=== PATIENT | female | born 1965 | race Caucasian/White ===

== ENCOUNTER 2017-01-21 15:08 | Outpatient (CLI) | payer BC ==
--- OUTSIDE RECORDS SUMMARY | 2017-01-21 15:18 | XMS | Clinical Summary ---
:1965 Author Organization [facility] Address [address] [place] [address] Phone Care Team Providers Name Role Phone , Primary Care Provider Unavailable Allergies Active Allergy Reactions Severity Noted Date Comments Penicillins 11/22/2015 Hurjguj-Lto-Fxn Reductase Inhibitors 11/22/2015 Current Medications Not on file Active Problems Not on file Family History Medical History Relation Name Comments Pancreatic cancer Maternal Grandfather Throat cancer Maternal Grandfather Throat cancer Other aunts Cancer Other uncle Relation Name Status Comments Maternal Grandfather Other aunts Other uncle Social History Tobacco Use Types Packs/Day Years Used Date Never Assessed Sex Assigned at Date Recorded Not on file Last Filed Vital Signs Not on file Plan of Treatment Health Maintenance Due Date Last Done Comments PAP SMEAR 1984 COLONOSCOPY 2013 MAMMOGRAM 2013 INFLUENZA VACCINE 11/18/2016 Results Not on filefrom Last 3 Months
--- NOTE | 2017-01-21 16:28 | RAD ---
FOUR VIEWS LUMBOSACRAL SPINE: Indication: Radiculopathy. FINDINGS: There is laminectomy changes at L5 and S1. There is multilevel disc degenerative disease. No definit e abnormal translational motion is evident. No acute fracture is demonstrated. IMPRESSION: 1. Post operative lumbar spine. 2. No abnormal translational motion. POS: [facility]
--- NOTE | 2017-01-21 17:46 | MRI ---
LUMBAR SPINE WITH AND WITHOUT CONTRAST 01/21/17 COMPARISON: 02/21/15 MRI. CLINICAL INDICATION: Lumbar radiculopathy. FINDINGS: Vertebral body height and alignment are preserved. Conus medullaris demonstrates normal morphology t erminating at the L1 level. Degenerative T1 signal reduction of the L3-4 disc space is stable. Redemonstration of right renal signal abnormality. There is evidence of posterior decompression within the superior L4 level through the L5-S1 level. T here is no high grade central canal stenosis of the postoperative L4-5 and L5-S1 levels. No high gra de foraminal stenosis of L5-S1 level, bilaterally. There is mild bilateral foraminal stenosis at L4- 5 level. L3-4: There is no high grade central canal stenosis, which is an improvement from prior exam. There is mild to moderate bilateral neural foraminal stenosis grossly stable. L2-3: No significant central canal stenosis. There is mild AP diameter of the bilateral neural lamin earlene. L1-2: No significant central canal or foraminal stenosis. Postcontrast imaging reveals no mass producing enhancement of the vertebral canal or pathologic enha ncement of conus medullaris or nerve roots of cauda equina. There is circumferential enhancement about the postoperative thecal sac of the L4 through L5-S1 leve ls indicating epidural fibrosis. 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 There has been interval improveme nt with regard to prior central canal stenosis of the L3-4 level status post decompression. POS: [facility]
== END 2017-01-21 15:09 | disposition home or self-care (01) ==
LOC: TBSIIMAG 15:08
PROVIDERS: ATTEND Surgery
DX: M47.26 Other spondylosis with radiculopathy, lumbar region (principal); M48.061 Spinal stenosis, lumbar region without neurogenic claudication; Z98.890 Other specified postprocedural states
CPT/HCPCS: 72120; 72158

== ENCOUNTER 2017-11-10 14:58 | Outpatient (CLI) | payer BC ==
[2017-11-10 15:21] LABS: #Basophils 0.1 thou/uL (0.0-0.2); #Eosinphils 0.1 thou/uL (0.0-0.7); #Lymphocytes 1.7 thou/uL (1.20-3.40); #Monocytes 0.3 thou/uL (0.11-0.59); #Neutrophils 3.4 thou/uL (1.40-6.50); %Basophils 1.1 % (0.0-1.0); %Eosinophils 1.5 % (0.0-10.0); %Lymphocytes 30.3 % (21.0-51.0); %Monocytes 5.7 % (0.0-10.0); %Neutrophils 61.5 % (42.0-75.0); Hemoglobin 13.1 g/dL (12.0-16.0); Mean Corpuscular HGB CONC 34.3 g/dL (32.0-36.0); Mean Corpuscular Hemoglobin 30.6 pg (27.0-31.0); Mean Corpuscular Volume 89.3 fL (78.0-98.0); Platelet Count 315 thou/uL (130-400); RBC Distribution Width 12.1 % (11.5-14.5); Red Blood Cell (RBC) Count 4.29 mill/uL (4.20-5.40); White Blood Cell (WBC) Count 5.6 thou/uL (4.8-10.8)
[2017-11-10 15:32] LABS: ALT (SGPT) 23 U/L (8-55); AST (SGOT) 19 U/L (5-34); Albumin 4.6 g/dL (3.5-5.0); Alkaline Phosphatase 71 U/L (40-150); Anion Gap 12 mmol/L (10-20); BUN (Urea Nitrogen) 10 mg/dL (9.8-20.1); Bilirubin, Total 0.6 mg/dL (0.2-1.2); Calc. Creatinine Clearance 0 mL/min (70-130); Calcium 9.6 mg/dL (7.8-10.44); Carbon Dioxide 27 mmol/L (22-29); Chloride 105 mmol/L (98-107); Estimated GFR-MDRD 74; Globulin 2.1 g/dL (2.4-3.5); Glucose 91 mg/dL (70-105); Potassium 3.9 mmol/L (3.5-5.1); Protein, Total 6.7 g/dL (6.0-8.3); Sodium 140 mmol/L (136-145)
[2017-11-10 16:03] LABS: Free T4 (Free Thyroxine) 0.87 ng/dL (0.70-1.48); Thyroid Stimulating Hormone 1.3046 uIU/mL (0.35-4.94)
--- NOTE | 2017-11-10 16:08 | RAD ---
CHEST TWO VIEWS: History: Dyspnea. Comparison: 12-12-14 FINDINGS: Cardiac silhouette and pulmonary vasculature are unremarkable. Subsegmental atelectasis at the anteri or segment right lower lobe partially obscures the doom of the right hemidiaphragm on the lateral vie w. Left lung is well inflated. No lobar consolidation, pleural fluid, or pneumothorax. IMPRESSION: Mild atelectasis right lung base. No significant pleural fluid. POS: [facility]
== END 2017-11-10 14:59 | disposition home or self-care (01) ==
LOC: SCSRAD 14:58
PROVIDERS: ATTEND Family Medicine
DX: J90 Pleural effusion, not elsewhere classified (principal); A04.5 Campylobacter enteritis; F32.9 Major depressive disorder, single episode, unspecified; J98.11 Atelectasis
CPT/HCPCS: 36415; 71046; 80053; 84439; 84443; 85025

== ENCOUNTER 2019-03-24 08:59 | Outpatient (CLI) | payer BC | END 2019-03-24 09:00 | disposition home or self-care (01) | LOC: DTY/OP 08:59 | PROVIDERS: ATTEND Family Medicine | DX: E66.3 Overweight (principal) | CPT/HCPCS: 97802 ==

== ENCOUNTER 2019-11-04 08:09 | Outpatient (CLI) | payer BC ==
--- NOTE | 2019-11-04 08:39 | RAD ---
XR Chest Pa Lat STANDARD History: Abnormal chest x-ray. Comparison: Radiograph 2018 Findings: Lungs are clear. No pneumothorax. No effusion. Cardiac silhouette and mediastinal contours are within normal limits. No acute osseous abnormality. Impression: No acute intrathoracic abnormality.
[2019-11-04 10:42] LABS: #Basophils 0.1 thou/uL (0.0-0.2); #Eosinphils 0.1 thou/uL (0.0-0.7); #Lymphocytes 1.2 thou/uL (1.20-3.40); #Monocytes 0.4 thou/uL (0.11-0.59); #Neutrophils 3.3 thou/uL (1.40-6.50); %Basophils 1.2 % (0.0-1.0); %Eosinophils 1.5 % (0.0-10.0); %Neutrophils 66.2 % (42.0-75.0); Hemoglobin 13.1 g/dL (12.0-16.0); Mean Corpuscular HGB CONC 31.3 g/dL (32.0-36.0); Mean Corpuscular Hemoglobin 29.2 pg (27.0-31.0); Mean Corpuscular Volume 93.4 fL (78.0-98.0); Mean Platelet Volume 7.5 fL (7.4-10.4); Platelet Count 324 thou/uL (130-400); RBC Distribution Width 13.1 % (11.5-14.5); Red Blood Cell (RBC) Count 4.49 mill/uL (4.20-5.40)
[2019-11-04 11:19] LABS: Hemoglobin A1c 5.3 % (4.0-6.0)
[2019-11-04 11:23] LABS: Free T4 (Free Thyroxine) 1.02 ng/dL (0.70-1.48); Thyroid Stimulating Hormone 1.6121 uIU/mL (0.35-4.94)
[2019-11-04 11:50] LABS: ALT (SGPT) 15 U/L (8-55); AST (SGOT) 14 U/L (5-34); Albumin 4.8 g/dL (3.5-5.0); Alkaline Phosphatase 102 U/L (40-110); Anion Gap 13 mmol/L (10-20); BUN (Urea Nitrogen) 13 mg/dL (9.8-20.1); Bilirubin, Total 0.3 mg/dL (0.2-1.2); Calc. Creatinine Clearance 0 mL/min (70-130); Calcium 9.5 mg/dL (7.8-10.44); Carbon Dioxide 27 mmol/L (22-29); Chloride 104 mmol/L (98-107); Estimated GFR-MDRD 73; Globulin 2.2 g/dL (2.4-3.5); Glucose 82 mg/dL (70-105); Iron 88 ug/dL (50-170); Potassium 5.2 mmol/L (3.5-5.1); Sodium 139 mmol/L (136-145)
== END 2019-11-04 08:10 | disposition home or self-care (01) ==
LOC: SCSRAD 08:09
PROVIDERS: ATTEND Family Medicine
DX: R91.8 Other nonspecific abnormal finding of lung field (principal); Z11.59 Encounter for screening for other viral diseases; E03.9 Hypothyroidism, unspecified; E66.3 Overweight; D50.8 Other iron deficiency anemias
CPT/HCPCS: 36415; 71046; 80053; 83036; 83540; 84439; 84443; 85025; 87521